=== PATIENT | male | born 1985 | race Caucasian/White ===

== ENCOUNTER 2020-10-30 12:38 | Observation (INO) | payer OTHER, SELFPAY ==
[2020-10-30 13:04] VITALS: BP 125/84; PULSE 82; RESP 19; TEMP 37.1; O2SAT 100
[2020-10-30 15:54] LABS: Alanine Aminotransferase 25 IU/L (<50); Albumin 4.7 g/dL (3.5-5.0); Albumin Globulin Ratio 1.5 (1.0-2.8); Alkaline Phosphatase 54 U/L (38-126); Aspartate Aminotransferase 35 IU/L (17-59); BUN Creatinine Ratio 10.6 (6-22); Bilirubin Total 1.2 mg/dL (0.2-1.3); Blood Urea Nitrogen 10 mg/dL (9-20); Calcium 9.5 mg/dL (8.4-10.2); Carbon Dioxide 29 mmol/L (22-32); Chloride 103 mmol/L (98-107); Estimated Glomerular Filt Rate > 60.0 mL/min (>60); Globulin 3.2 g/dL (1.7-4.1); Glucose 96 mg/dL (70-100); HEMOLYSIS < 15 (0-50); Lipase 26 U/L (23-300); Potassium 4.1 mmol/L (3.4-5.1); Sodium 139 mmol/L (137-145); Total Protein 7.9 g/dL (6.3-8.2)
[2020-10-30 15:59] LABS: Add Manual Diff / Slide Review NO; Basophils Absolute Auto 100 /uL (0-100); Basophils Percent Auto 0.7 % (0-2); Eosinophils Absolute Auto 200 /uL (0-450); Eosinophils Percent Auto 1.7 % (2-4); Hematocrit 44.6 % (41-53); Hemoglobin 15.1 g/dL (13.5-17.5); Lymphocytes Absolute Auto 1800 /uL (1100-4500); Mean Corpuscular HGB Conc 33.7 % (30-36); Mean Corpuscular Hemoglobin 28.6 PG (26-34); Mean Corpuscular Volume 84.6 fL (80-100); Monocytes Absolute Auto 800 /uL (0-900); Monocytes Percent Auto 7.9 % (3-14); Neutrophils Absolute Auto 7100 /uL (1500-7000); Neutrophils Percent Auto 71.7 % (50-75); Platelet Count 254 X10^3/uL (150-400); Red Blood Cell Count 5.27 X10^6/uL (4.5-5.9); Red Cell Distribution Width 12.9 % (11.6-14.8); White Blood Cell Count 9.9 X10^3/uL (4.5-11.0)
--- NOTE | 2020-10-30 18:00 | ED_ITS ---
HPI - Abdominal Pain General Chief Complaint: Abdominal Pain Stated Complaint: abdominal/appendix pain Time Seen by Provider: 10/30/20 17:59 Source: patient Mode of arrival: Ambulatory History of Present Illness HPI narrative: This is a 35-year-old male comes emergency department with right lower quadrant pain. Patient states been present for 2 days. He states it sort of lower and lateral. Patient has not had fevers. He has not had any nausea or vomiting. He has not had any diarrhea but states stools have been a little bit looser. No black or bloody stools. Patient has been urinating without issue. He states when it starts to get worse he has a bit of a headache. Patient denies any other medical issues. No prior surgeries. He states he has always had a small bump in his umbilicus region which is worsened when pressed or palpated even growing up as a child but is not acutely worse today. He has not noticed any lumps or bumps otherwise. Patient denies any allergies to medications. Related Data Previous Rx's Medication Instructions Recorded cefuroxime axetil 500 mg tablet 500 mg PO BID #7 tab 10/31/20 metronidazole 500 mg tablet 500 mg PO TID #10 tab 10/31/20 (Flagyl) oxycodone 5 mg tablet 5 mg PO Q6H PRN #10 tab 10/31/20 Allergies Allergy/AdvReac Type Severity Reaction Status Date / Time No Known Drug Allergies Allergy Verified 10/31/20 13:15 Review of Systems Review of Systems ROS Unobtainable: All systems reviewed & are unremarkable except as noted in HPI and below Patient History Social History household members: spouse and children Smoking Status: Former smoker alcohol intake: current Smoking Status: Former smoker tobacco type: smokeless tobacco alcohol intake frequency: a few times a week Substance Use Type: does not use Exam Narrative Exam Narrative: GENERAL: Alert and oriented x three, well-nourished male in mild distress. HEENT: Head normocephalic, atraumatic, EOMI, pupils reactive, face symmetric, moist mucous membranes NECK: Supple, full range of motion CARDIOVASCULAR: Regular rate and rhythm without murmurs, rubs or gallops. RESPIRATORY: Breath sounds equal bilaterally, no wheezes rales or rhonchi. ABDOMEN: Soft, mild right lower quadrant tenderness. Patient has a very small umbilical hernia which does not even protrude from the umbilicus. It is not really tender but does feel full it is not easily reducible. Patient does not have any inguinal hernias on palpation. Normoactive bowel sounds all 4 quadrants. No guarding or rebound, rigidity, no mass : No CVA tenderness bilaterally EXTREMITIES: Normal range of motion, no clubbing or edema. Neurovascularly intact NEUROLOGICAL: Cranial nerves II through XII grossly intact. Moving all extremities SKIN: Warm, dry, no petechiae, no rashes or lesions. Initial Vital Signs Initial Vital Signs: Vital Signs Temperature 98.8 F 10/30/20 13:04 Pulse Rate 82 10/30/20 13:04 Respiratory Rate 19 10/30/20 13:04 Blood Pressure 125/84 10/30/20 13:04 Pulse Oximetry 100 10/30/20 13:04 Course Orders Ordered: Discontinued Medications Bupivacaine HCl (Bupivacaine 0.5% (Pf) Vial) 30 ml INJ NOW ONE Stop: 10/31/20 16:14 Last Admin: 10/31/20 16:13 Dose: 30 ml Documented by: FARNAZ Enoxaparin Sodium (Enoxaparin 40 Mg/0.4 Ml Syringe) 40 mg SUBCUT NOW ONE Stop: 10/30/20 19:54 Last Admin: 10/30/20 21:12 Dose: 40 mg Documented by: CYNDI Hydromorphone HCl (Hydromorphone 1 Mg Inj) 1 mg IV Q4HR PRN PRN Reason: Pain, Severe (7-10) Last Admin: 10/31/20 09:32 Dose: 1 mg Documented by: Admin: 10/30/20 21:12 Dose: 1 mg Documented by: CYDNI Hydromorphone HCl (Hydromorphone 2 Mg Inj) 0 mg IV Q5MIN PRN PRN Reason: Pain, Mild (1-3) Piperacillin Sod/Tazobactam (Sod 4.5 gm/ Sodium Chloride) 100 mls @ 200 mls/hr IV NOW ONE Stop: 10/30/20 18:25 Last Infusion: 10/30/20 19:27 Dose: 0 mls/hr Documented by: Admin: 10/30/20 18:47 Dose: 200 mls/hr Documented by: DARÍO Lactated Ringer's (Lactated Ringers) 1,000 mls @ 150 mls/hr IV CONT BLANKA Last Admin: 10/31/20 14:50 Dose: 150 mls/hr Documented by: Infusion: 10/31/20 14:50 Dose: 150 mls/hr Documented by: Admin: 10/31/20 13:02 Dose: 150 mls/hr Documented by: Infusion: 10/31/20 08:44 Dose: 150 mls/hr Documented by: Admin: 10/31/20 02:03 Dose: 150 mls/hr Documented by: Infusion: 10/31/20 02:03 Dose: 150 mls/hr Documented by: Admin: 10/30/20 21:09 Dose: 150 mls/hr Documented by: CYNDI Piperacillin Sod/Tazobactam (Sod 3.375 gm/ Sodium Chloride) 100 mls @ 25 mls/hr IV Q8H [facility] Last Admin: 10/31/20 16:08 Dose: 25 mls/hr Documented by: Infusion: 10/31/20 14:03 Dose: 25 mls/hr Documented by: Admin: 10/31/20 10:03 Dose: 25 mls/hr Documented by: JEAN CARLOS Infusion: 10/31/20 07:50 Dose: 0 mls/hr Documented by: Admin: 10/31/20 02:01 Dose: 25 mls/hr Documented by: VELMA Acetaminophen (Ofirmev) 1,000 mg in 100 mls @ 400 mls/hr IV NOW ONE Stop: 10/31/20 16:21 Last Infusion: 10/31/20 16:46 Dose: 0 mls/hr Documented by: Admin: 10/31/20 16:30 Dose: 400 mls/hr Documented by: YVONNE Ketorolac Tromethamine (Ketorolac 30 Mg/Ml Vial) 30 mg IV NOW ONE Stop: 10/30/20 18:06 Last Admin: 10/30/20 18:46 Dose: 30 mg Documented by: DARÍO Ketorolac Tromethamine (Ketorolac 30 Mg/Ml Vial) 30 mg IV Q6HR PRN PRN Reason: Pain, Moderate (4-6) Stop: 11/04/20 19:41 Last Admin: 10/31/20 07:53 Dose: 30 mg Documented by: Admin: 10/31/20 02:00 Dose: 30 mg Documented by: VELMA Meperidine HCl (Meperidine 50 Mg/Ml Inj) 12.5 mg IV PACUNOW PRN PRN Reason: Mild pain or shivering Naloxone HCl (Naloxone 0.4 Mg/Ml Vial) 0.2 mg IV Q2MIN PRN PRN Reason: Opiate Reversal Ondansetron HCl (Ondansetron 4 Mg/2 Ml Inj) 4 mg IV Q4HR PRN PRN Reason: Nausea And Vomiting Ondansetron HCl (Ondansetron 4 Mg/2 Ml Inj) 4 mg IV NOW PRN PRN Reason: Nausea And Vomiting Oxycodone HCl (Oxycodone Ir 5 Mg Tablet) 5 mg PO PACUNOW PRN PRN Reason: Mild or moderate pain Last Admin: 10/31/20 17:27 Dose: 5 mg Documented by: BROWN Consultations Consultation #1: Dr. March. Plan for NPO, antibiotics and OR in morning. Vital Signs Vital signs: Vital Signs - 8 hr 10/30/20 13:04 Temperature 98.8 F Pulse Rate 82 Respiratory Rate 19 Blood Pressure 125/84 Pulse Oximetry 100 MDM - Abdominal Pain Lab Data Result diagrams: 10/31/20 05:32 10/30/20 15:30 Labs: Lab Results 10/30/20 10/30/20 Range/Units 15:30 15:30 WBC 9.9 (4.5-11.0) X10^3/uL RBC 5.27 (4.5-5.9) X10^6/uL Hgb 15.1 (13.5-17.5) g/dL Hct 44.6 (41-53) % MCV 84.6 (80-100) fL MCH 28.6 (26-34) PG MCHC 33.7 (30-36) % RDW 12.9 (11.6-14.8) % Plt Count 254 (150-400) X10^3/uL Neut % (Auto) 71.7 (50-75) % Lymph % (Auto) 18.0 L (25-40) % [place] % (Auto) 7.9 (3-14) % Eos % (Auto) 1.7 L (2-4) % Baso % (Auto) 0.7 (0-2) % Neut # (Auto) 7100 H (3564-0371) /uL Lymph # (Auto) 1800 (3532-3012) /uL Al[place] # (Auto) 800 (0-900) /uL Eos # (Auto) 200 (0-450) /uL Baso # (Auto) 100 (0-100) /uL Sodium 139 (137-145) mmol/L Potassium 4.1 (3.4-5.1) mmol/L Chloride 103 (98-107) mmol/L Carbon Dioxide 29 (22-32) mmol/L BUN 10 (9-20) mg/dL Creatinine 0.94 (0.66-1.25) mg/dL Estimated GFR > 60.0 (>60) mL/min BUN/Creatinine Ratio 10.6 (6-22) Glucose 96 (70-100) mg/dL Calcium 9.5 (8.4-10.2) mg/dL Total Bilirubin 1.2 (0.2-1.3) mg/dL AST 35 (17-59) IU/L ALT 25 (<50) IU/L Alkaline Phosphatase 54 (38-126) U/L Total Protein 7.9 (6.3-8.2) g/dL Albumin 4.7 (3.5-5.0) g/dL Globulin 3.2 (1.7-4.1) g/dL Albumin/Globulin Ratio 1.5 (1.0-2.8) Lipase 26 (23-300) U/L Point of care testing: Urine Dip Bedside Urine Glucose Negative Bedside Urine Bilirubin - Negative Bedside Urine Ketone - Negative Urine Specific [place] 1.015 Bedside Urine Occult Blood - Negative Bedside Urine pH 6.0 Bedside Urine Protein - Negative Bedside Urine Urobilinogen - Negative Bedside Urine Nitrite - Negative Bedside Urine Leukocytes - Negative Esterase Imaging Data CT scan - abdomen/pelvis: Radiologist's Impression: Tristan Darden 35 M 1985 [address] [id number] Scan ReportSigned Patient: Tristan Darden WMR#: [id number]: 1985Acct:[id number]/Sex: 35 / MDate of Service: 10/30/20Loc: EDAccession Number: [id number] Procedure: CT abdomen pelvis w con Ordering Provider: Rica Hansen D.O. PROCEDURE: CT ABDOMEN PELVIS W CON INDICATIONS: RLQ pain, + sm umbilical hernia, no other hernia noted. TECHNIQUE: After the administration of intravenous contrast, axial sections acquired from the lung bases to the pubic symphysis. Coronal and sagittal reformats were performed. For radiation dose reduction, the following was used: automated exposure control, adjustment of mA and/or kV according to patient size. COMPARISON: None. FINDINGS: Image quality: Excellent. Lung bases: Unremarkable. Heart: No significant findings. ABDOMEN: Liver: Unremarkable. Gallbladder: Unremarkable. Biliary ducts: Unremarkable. Pancreas: Unremarkable. Spleen: Unremarkable. Adrenal Glands: Unremarkable. Kidneys and Ureters: Unremarkable. Stomach and Bowel: Stomach, small bowel loops, and colon are unremarkable. Peritoneum: No abnormal intraperitoneal fluid. No free air. Ventral Wall: No hernias. Abdominal Nodes: No retroperitoneal or mesenteric adenopathy by size criteria. Vessels: Aorta and inferior vena cava are normal in size. PELVIS: Pelvic Organs: Unremarkable except for acute appendicitis right lower quadrant without evidence of para appendiceal abscess formation. No appendicoliths are seen. The appendix is dilated up to 11 mm. . Bladder: Unremarkable. Pelvic Nodes: No enlarged lymph nodes. Miscellaneous: No hernias are seen. Bones: Unremarkable. IMPRESSION: Acute appendicitis without evidence of periappendiceal abscess form ation. Findings immediately called to the emergency room physician caring for the patient. Dictated by: Oliverio Montez M.D. on 10/30/2020 at 18:26 Approved by: Oliverio Montez M.D. on 10/30/2020 at 18:29 [facility] Narrative Medical decision making narrative: This is a 35 old male who comes to the emergency department with complaint of left lower quadrant pain. He has appendicitis on the CT. Taken to OR by surgery Discharge Plan Departure Patient Disposition: Admitted as Observation Clinical Impression: Acute appendicitis Admit Date/Time: 10/30/20 18:49 Admit Provider: Papito March
--- NOTE | 2020-10-30 18:05 | DI.CT.S_ITS ---
PROCEDURE: CT ABDOMEN PELVIS W CON INDICATIONS: RLQ pain, + sm umbilical hernia, no other hernia noted. TECHNIQUE: After the administration of intravenous contrast, axial sections acquired from the lung bases to the pubic symphysis. Coronal and sagittal reformats were performed. For radiation dose reduction, the following was used: automated exposure control, adjustment of mA and/or kV according to patient size. COMPARISON: None. FINDINGS: Image quality: Excellent. Lung bases: Unremarkable. Heart: No significant findings. ABDOMEN: Liver: Unremarkable. Gallbladder: Unremarkable. Biliary ducts: Unremarkable. Pancreas: Unremarkable. Spleen: Unremarkable. Adrenal Glands: Unremarkable. Kidneys and Ureters: Unremarkable. Stomach and Bowel: Stomach, small bowel loops, and colon are unremarkable. Peritoneum: No abnormal intraperitoneal fluid. No free air. Ventral Wall: No hernias. Abdominal Nodes: No retroperitoneal or mesenteric adenopathy by size criteria. Vessels: Aorta and inferior vena cava are normal in size. PELVIS: Pelvic Organs: Unremarkable except for acute appendicitis right lower quadrant without evidence of para appendiceal abscess formation. No appendicoliths are seen. The appendix is dilated up to 11 mm. . Bladder: Unremarkable. Pelvic Nodes: No enlarged lymph nodes. Miscellaneous: No hernias are seen. Bones: Unremarkable. IMPRESSION: Acute appendicitis without evidence of periappendiceal abscess formation. Findings immediately called to the emergency room physician caring for the patient. Dictated by: Oliverio Montez M.D. on 10/30/2020 at 18:26 Approved by: Oliverio oMntez M.D. on 10/30/2020 at 18:29
[2020-10-30] MEDS: KETOROLAC 30 MG/ML VIAL IV (18:46)
[2020-10-30] MEDS: PIPERACILLIN/TAZO 4.5 GM in SODIUM CHLORIDE 0.9% 100 ML 200 ML IV (18:47)
--- NOTE | 2020-10-30 19:45 | PM.HP.1 ---
History of Present Illness History of Present Illness Chief complaint: abdominal/appendix pain Narrative: Patient is a gentleman with a 2 day history of right lower abdominal pain accompanied by anorexia with no nausea or vomiting. He has had a headache all day but he thinks that is because he has not eaten. Unfortunately had water just before I saw him. He has never had pain like this before. No prior abdominal operations. He is otherwise healthy. No black or bloody bowel movements. No dysuria or hematuria. Patient History Family & Social History Safety & Behavioral: Feels Safe in Current Yes Environment Been Physically Hurt or No Threatened By a Person Tobacco & Substance use: Smoking Status Former smoker alcohol intake frequency a few times a week Substance Use Type does not use Meds Home Medications and Allergies Home Medications Medication Instructions Recorded Confirmed Type No Known Home Medications 06/17/18 10/30/20 History Allergies Allergy/AdvReac Type Severity Reaction Status Date / Time No Known Drug Allergies Allergy Verified 06/17/18 19:55 Review of Systems Review of Systems Narrative: Patient denies visual difficulties double vision, pain in eyes, earache, sore throats, trouble swallowing, cough, cold or asthma. No chest pain or heart problems or murmurs. No breathing issues. No black or bloody bowel movements. No dysuria, hematuria or kidney stones. No seizures or blackouts. No anxiety or depression. 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 Exam Vital Signs (past 8 hours): - 10/30/20 13:04 Temperature 98.8 F Pulse Rate 82 Respiratory Rate 19 Blood Pressure 125/84 Pulse Oximetry 100 Oxygen Delivery Method Room Air Narrative Exam Narrative: Cooperative in no apparent distress. Eyes are nonicteric. Pupils equal round reactive to light. Neck is supple no nodes in the neck supraclavicular areas. Oral mucosa is pink moist no open lesions. Lungs are clear to auscultation without rales or rhonchi in equal percussion. Heart regular rate and rhythm without murmur gallop. No heave lift or thrill. Abdomen is slightly protuberant soft. Localized tenderness in the right abdomen just below the umbilicus level. Remainder the abdomen is soft nontender. No CVA tenderness. Alert and oriented. Speech rate and content are appropriate. Affect is appropriate. No bony deformities or edema of there is extremities. Skin is intact 2+ turgor and texture. Objective Labs Result Diagrams: 10/30/20 15:30 10/30/20 15:30 Labs: Laboratory Results - last 24 hr 10/30/20 10/30/20 15:30 15:30 WBC 9.9 RBC 5.27 Hgb 15.1 Hct 44.6 MCV 84.6 MCH 28.6 MCHC 33.7 RDW 12.9 Plt Count 254 Neut % (Auto) 71.7 Lymph % (Auto) 18.0 L Angelina % (Auto) 7.9 Eos % (Auto) 1.7 L Baso % (Auto) 0.7 Neut # (Auto) 7100 H Lymph # (Auto) 1800 Angelina # (Auto) 800 Eos # (Auto) 200 Baso # (Auto) 100 Sodium 139 Potassium 4.1 Chloride 103 Carbon Dioxide 29 BUN 10 Creatinine 0.94 Estimated GFR > 60.0 BUN/Creatinine Ratio 10.6 Glucose 96 Calcium 9.5 Total Bilirubin 1.2 AST 35 ALT 25 Alkaline Phosphatase 54 Total Protein 7.9 Albumin 4.7 Globulin 3.2 Albumin/Globulin Ratio 1.5 Lipase 26 Assessment & Plan Assessment and plan (1) Acute appendicitis: Qualifiers: Acute appendicitis type: with localized peritonitis Appendicitis gangrene presence: unspecified whether gangrene present Appendicitis perforation presence: unspecified whether perforation present Appendicitis abscess presence: without abscess Qualified Code(s): K35.30 - Acute appendicitis with localized peritonitis, without perforation or gangrene Status: Acute Assessment & Plan narrative: Recommend laparoscopic appendectomy. Unfortunately the patient has chest drank water. To reduce his risk of aspiration we will hydrate him well through the night and operate tomorrow morning. We will begin broad-spectrum IV antibiotics. He has already received 2 doses Zosyn so I will continue that on the floor. He can be up and about will give him DVT prophylaxis tonight. All questions were answered. Talked to him about the incisions what I would find most likely risk of open procedure additional port sites. Risks of bleeding and abscess formation were also discussed. He appears to understand wishes to proceed
[2020-10-30 19:49] VITALS: BP 140/80; PULSE 70; RESP 18; O2SAT 100
[2020-10-30 19:51] LABS: COVID19 - ADMIT (NP swab/PCR) Negative (Negative)
[2020-10-30 19:55] VITALS: BP 117/73; PULSE 71; RESP 16; TEMP 36.4; O2SAT 99; BMI 25.9
[2020-10-30] MEDS: LACTATED RINGERS 1,000 ML 150 ML IV (21:09)
[2020-10-30] MEDS: ENOXAPARIN 40 MG/0.4 ML SYRINGE SUBCUT (21:12)
[2020-10-30] MEDS: HYDROMORPHONE 1 MG INJ IV (21:12)
[2020-10-31] VITALS (14 sets, daily range): BP systolic 98–138; BP diastolic 55–78; PULSE 55–66; RESP 11–18; TEMP 35.9–36.7; O2SAT 96–100; BMI 25.9
--- NOTE | 2020-10-31 | PATH_ITS ---
[facility] Accession Number: [id number] . 01 Material submitted: . appendix - APPENDIX . 02 Diagnosis: Appendix, Appendectomy: Acute appendicitis and serositis. Fibrous obliteration of the appendiceal tip. MRV 11/05/2020 1358 Local . 02 Electronically signed: . Emma Kinney MD, Pathologist NPI- [id number] . 01 Gross description: . Received in formalin and labeled with appendix. It consists of a 3.8 cm in length by 0.6 cm in diameter intact appendix covered in pink-burch to purple-burch, focally congested serosa. The 4.2 x 1.3 x 1.2 cm attached mesoappendix is yellow-burch, coarsely lobulated and diffusely hemorrhagic. The resection margin is inked blacked and shaved. Sectioning reveals pink-burch, focally hemorrhagic mucosa, a lumen that dilates to 0.2 cm, and an average wall thickness of 0.2 cm. A nodular lesion is not grossly apparent. Obstetrics Gyn sections are submitted. . Summary of Sections: A1 = Resection margin and bisected tip, 3 pieces. 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 ([id number]) /MRV 11/01/2020 1544 Local . 02 Pathologist provided ICD-10: K35.30 . 02 CPT . 699627 Performed at: 01 [facility] [address], [place], [place] [id number] MD Attila Villanueva MD Phone: [phone] Performed at: [address] [facility] [address] [place], [place] [id number] MD Aylin Oneill MD Phone: [phone]
[2020-10-31] MEDS: KETOROLAC 30 MG/ML VIAL IV ×2 (02:00→07:53)
[2020-10-31] MEDS: PIPERACILLIN/TAZO 3.375 GM in SODIUM CHLORIDE 0.9% 100 ML 25 ML IV ×3 (02:01→16:08)
[2020-10-31] MEDS: LACTATED RINGERS 1,000 ML 150 ML IV ×3 (02:03→14:50)
[2020-10-31 05:56] LABS: Add Manual Diff / Slide Review NO; Basophils Absolute Auto 0 /uL (0-100); Basophils Percent Auto 0.6 % (0-2); Eosinophils Absolute Auto 200 /uL (0-450); Eosinophils Percent Auto 3.3 % (2-4); Hematocrit 38.6 % (41-53); Hemoglobin 13.2 g/dL (13.5-17.5); Lymphocytes Absolute Auto 2400 /uL (1100-4500); Lymphocytes Percent Auto 37.5 % (25-40); Mean Corpuscular HGB Conc 34.1 % (30-36); Mean Corpuscular Hemoglobin 28.7 PG (26-34); Monocytes Absolute Auto 800 /uL (0-900); Neutrophils Absolute Auto 3000 /uL (1500-7000); Neutrophils Percent Auto 46.6 % (50-75); Platelet Count 226 X10^3/uL (150-400); Red Cell Distribution Width 12.8 % (11.6-14.8); White Blood Cell Count 6.4 X10^3/uL (4.5-11.0)
[2020-10-31] MEDS: HYDROMORPHONE 1 MG INJ IV (09:32)
--- NOTE | 2020-10-31 10:16 | PM.PREOP ---
Pre-operative Note COVID-19 COVID-19 status: Negative Result date/Date tested (Pos, Neg/Pending): 10/30/20 Interval Note History & Physical reviewed/Exam performed by Physician: Yes Changes to H&P: No
--- NOTE | 2020-10-31 10:53 | CM.IDA ---
Initial DCP Assessment Note Pt is a 35 yo male, resident of [place], arrives w/ abd pain, Dr March admitted observation for lap appy, scheduled today 10.31.20 at 1230 PCP: Not listed Payer: Sangeetha According to chart review, patient is indp. and ambulating in room, NPO and awaiting scheduled surgery today. Patient expected to return home w/spouse s/p lap appy No needs expected from DC planning team although will remain available in case this changes before DC. JW
--- NOTE | 2020-10-31 14:32 | PC.NURSE ---
Pt to OR via bed with CPAP and IVF and SUPERVISOR RIVETING's.
--- NOTE | 2020-10-31 15:53 | SUR.OPER ---
Supine on padded OR bed, head on pillow, left arm padded and tucked at side, right arm on padded armboard at < 90 degree angle, legs uncrossed, safety belt at thigh, tape over blanket over lower legs .
[2020-10-31] MEDS: BUPIVACAINE 0.5% (PF) VIAL 30 ML INJ (16:13)
[2020-10-31] MEDS: ACETAMINOPHEN IV 1,000 MG/100 ML VIAL 400 MG IV (16:30)
--- NOTE | 2020-10-31 17:24 | PM.OP.1 ---
Operative Date/Time/Diagnoses Date of procedure: 10/31/20 Time of procedure: 17:24 Pre-op diagnosis: Acute appendicitis Post-op diagnosis: same Procedure & Clinicians Procedure: laparoscopic appendectomy Same procedure as scheduled: Yes Indications: history physical exam and CT consistent with acute appendicitis. Surgeon: Papito March Click Yes if Unassisted: Yes Anesthesia Type: General Operative Notes Findings: acute appendicitis Closure Type: primary Specimen(s): other ( appendix) Prosthetic devices, grafts, tissues, transplants, or devices: none Estimated Blood Loss (mL): 5 Blood products transfused: none Procedure in detail: The patient was placed supine on the operating room table and underwent general endotracheal anesthesia. The patient was prepped and draped in the usual fashion. Local anesthetic was infiltrated and an incision made Adjacent to the umbilicus. It was carried down under direct vision through the fascia into the peritoneal cavity. there was a hernia at the umbilicus and the fat that was incarcerated in it was removed. The defect was enlarged in order to place the port. Stay sutures of 0 Vicryl were placed in the fascia. A 12 mm port was inserted and 2 additional ports were placed. These were 5 mm ports. One was placed between the umbilicus and pubis and 1 in the left lower quadrant. The cecum and terminal ileum were identified. Mesoappendix was cleaned and the base the appendix identified. A loop was placed across it and the appendix was divided Beyond this loop.. There was no bleeding. The appendix was immediately placed in a bag. The mucosa of the base of the appendix was cauterized. The right gutter and pelvis were copiously irrigated and suctioned free of fluid. There was no ongoing bleeding.The ports were all removed. The stay sutures at the umbilicus were tied. An additional 0 Ethibond was placed between the other sutures. The wounds were all irrigated and 4 0 Vicryl subcuticular interrupted sutures were used to close the skin. the umbilicus was tacked down with the same material prior to closure the skin at that location. The patient tolerated the procedure well. Complications: none Post-operative Condition: stable Disposition: PACU
[2020-10-31] MEDS: OXYCODONE IR 5 MG TABLET PO (17:27)
--- NOTE | 2020-10-31 17:47 | PC.NURSE ---
Patient returned to floor 1745.
--- NOTE | 2020-10-31 20:27 | PC.NURSE ---
Discharge note: Patient ambulated out of hospital under own power accompanied by and PIN WORKER to private vehicle. IV removed, belongings gathered, discharge instructions given including when to follow up, s/sx of stroke, infection, wound care, and medications. Patient and acknowledged all teaching. Low fall risk at time of discharge.
--- NOTE | 2020-10-31 21:36 | PM.DS.1 ---
History of Present Illness History of Present Illness Date Patient Seen: 10/31/20 Time Patient Seen: 18:00 Chief complaint: abdominal/appendix pain Narrative: Patient is a gentleman with a 2 day history of right lower abdominal pain accompanied by anorexia with no nausea or vomiting. He has had a headache all day but he thinks that is because he has not eaten. Unfortunately had water just before I saw him. He has never had pain like this before. No prior abdominal operations. He is otherwise healthy. No black or bloody bowel movements. No dysuria or hematuria. Discharge Providers Provider Date of admission: 10/30/20 18:49 Discharge Date: 10/31/20 Consults: 10/30/20 19:53 Consult to Discharge Planning Routine Comment: 10/30/20 20:07 Consult to Pastoral Services Routine Comment: Per patient request Discharge provider: Papito March MD Summary Hospital Course Discharge Diagnosis: Acute appendicitis Hospital Course: patient was brought into the hospital. Because he had taken p.o. he was not operated on the night of admission but was placed on the OR schedule for the next day. He underwent laparoscopic appendectomy. He was found to have a non perforated appendix. Postopratively he desired to go home and thus was discharged on a diet to follow up in the office. He was discharged on 3 days of oral antibiotics and pain medication. Status at Discharge Cognitive/behavioral status at discharge: oriented Functional status at discharge: independent ambulation Overall status at discharge: patient is progressing back to baseline Exam Vital Signs (past 8 hours): - 10/31/20 14:44 10/31/20 17:12 10/31/20 17:17 Temperature 96.7 F L 96.8 F L Pulse Rate 55 L 60 65 Respiratory Rate 18 11 L 12 Blood Pressure 103/69 111/63 106/73 Pulse Oximetry 99 99 98 10/31/20 17:21 10/31/20 17:26 10/31/20 17:31 Temperature 98 F Pulse Rate 62 61 58 L Respiratory Rate 13 14 11 L Blood Pressure 107/56 L 111/78 107/77 Pulse Oximetry 99 97 96 10/31/20 17:35 10/31/20 17:45 10/31/20 18:15 Temperature 96.9 F L 97.3 F L Pulse Rate 60 62 55 L Respiratory Rate 11 L 16 16 Blood Pressure 110/76 138/72 105/70 Pulse Oximetry 96 100 99 10/31/20 18:45 Temperature 97.9 F Pulse Rate 57 L Respiratory Rate 16 Blood Pressure 104/75 Pulse Oximetry 97 Oxygen Delivery Method Room Air Oxygen Flow Rate 0 Objective Labs Result Diagrams: 10/31/20 05:32 10/30/20 15:30 Labs: Laboratory Results - last 24 hr 10/31/20 05:32 WBC 6.4 RBC 4.60 Hgb 13.2 L Hct 38.6 L MCV 84.0 MCH 28.7 MCHC 34.1 RDW 12.8 Plt Count 226 Neut % (Auto) 46.6 L D Lymph % (Auto) 37.5 [place] % (Auto) 12.0 Eos % (Auto) 3.3 Baso % (Auto) 0.6 Neut # (Auto) 3000 Lymph # (Auto) 2400 [place] # (Auto) 800 Eos # (Auto) 200 Baso # (Auto) 0 PFSH Social History household members: spouse and children Smoking Status: Former smoker alcohol intake: current Discharge Plan Discharge Plan Patient Disposition: Home Provider Discharge Comment: you had acute appendicitis. Your appendix did not appear to be perforated. The medication you have been taking and will take at home will cause you to vomit if you taken any alcohol at all. This includes alcohol and cough syrup/ medicines as well as spirits , Wine and beer. take the antibiotics I prescribed to they run out. The pain medication I prescribed may constipate you. If so take a laxative like milk of magnesia. Discharge orders & Medications Prescriptions: New cefuroxime axetil 500 mg tablet 500 mg PO BID Qty: 7 RF: 0 metronidazole [Flagyl] 500 mg tablet 500 mg PO TID Qty: 10 RF: 0 oxycodone 5 mg tablet 5 mg PO Q6H PRN (Reason: pain) Qty: 10 RF: 0 Follow up/Referrals: Papito March MD [Physician] - 1 Week ( Call my office and make an appointment to see me Next Wednesday. If you need to reach a Ddoctor please call our office. If it is after hours listen to the message and you will be instructed how to reach the doctor on-call for our practice. Have a pen and paper ready to write the telephone number down) Diet/Activity/Treatments Diet: Diet as Tolerated Activity: No pool or tub for least [address] your pain-free off medication. Do not lift over 10 lb or strain for the next 4 weeks. You may walk but no other form of exercise. Skin/Wound/Dressing Care Report to your healthcare provider any signs of infection, such as:: chills, fever, increased pain, unusual drainage and unusual redness Dressing: you may remove your Band-Aids in 2 days and shower. Leave the tape that is directly on her skin under the Band-Aids fall off on its own. Discharge Data Attending Provider: Papito March [facility] Deep Vein Thrombosis/Pulmonary Embolism Present on Admission: No
== END 2020-10-31 20:28 | disposition home or self-care (01) ==
LOC: ED 17:59 → AC 18:50
PROVIDERS: Admitting Provider Specialist; Emergency Provider Emergency Medicine; Referring Provider Emergency Medicine; Visit Provider Specialist
PROC: 0DTJ4ZZ Resection of Appendix, Percutaneous Endoscopic Approach (ICD-10-PCS; CPT 44970; principal; 2020-10-31 14:30)
DX: K35.30 Acute appendicitis with localized peritonitis, without perforation or gangrene (principal); G47.33 Obstructive sleep apnea (adult) (pediatric); Z20.822 Contact with and (suspected) exposure to COVID-19
CPT/HCPCS: 44970; 36415; 74177; 80053; 81003; 83690; 85025; 87635; 96361; 96365; 96366; 96372; 96375; 96376; 99220; 99284; C9803; G0378; J0131; J0330; J1100; J1170; J1650; J1885; J2250; J2405; J2543; J2704; J3010; Q9967

== ENCOUNTER → 2022-01-23 09:22 | Outpatient (CLI) | payer OTHER, SELFPAY ==
[2022-01-23 10:38] LABS: Add Manual Diff / Slide Review NO; Basophils Absolute Auto 0 /uL (0-100); Basophils Percent Auto 0.6 % (0-2); Eosinophils Absolute Auto 200 /uL (0-450); Hematocrit 44.2 % (41-53); Hemoglobin 15.4 g/dL (13.5-17.5); Lymphocytes Absolute Auto 2400 /uL (1100-4500); Lymphocytes Percent Auto 42.9 % (25-40); Mean Corpuscular HGB Conc 34.9 % (30-36); Mean Corpuscular Hemoglobin 29.2 PG (26-34); Mean Corpuscular Volume 83.7 fL (80-100); Monocytes Absolute Auto 600 /uL (0-900); Monocytes Percent Auto 10.2 % (3-14); Neutrophils Absolute Auto 2400 /uL (1500-7000); Neutrophils Percent Auto 43.3 % (50-75); Platelet Count 238 X10^3/uL (150-400); Red Blood Cell Count 5.28 X10^6/uL (4.5-5.9); Red Cell Distribution Width 12.3 % (11.6-14.8); White Blood Cell Count 5.6 X10^3/uL (4.5-11.0)
[2022-01-23 11:09] LABS: Alanine Aminotransferase 28 IU/L (<50); Albumin 4.6 g/dL (3.5-5.0); Albumin Globulin Ratio 1.7 (1.0-2.8); Alkaline Phosphatase 49 U/L (38-126); Aspartate Aminotransferase 36 IU/L (17-59); BUN Creatinine Ratio 13.3 (6-22); Bilirubin Total 0.7 mg/dL (0.2-1.3); Blood Urea Nitrogen 14 mg/dL (9-20); Calcium 9.6 mg/dL (8.4-10.2); Carbon Dioxide 25 mmol/L (22-32); Chloride 99 mmol/L (98-107); Cholesterol 219 mg/dL (140-199); Estimated Glomerular Filt Rate > 60 mL/min (>60); Globulin 2.7 g/dL (1.7-4.1); Glucose 99 mg/dL (70-100); HDL Cholesterol 45 mg/dL (40-60); HEMOLYSIS < 15 (0-50); LDL Cholesterol Calculated 139 mg/dL (<100); Potassium 4.6 mmol/L (3.4-5.1); Sodium 136 mmol/L (137-145); Total Protein 7.3 g/dL (6.3-8.2); Triglycerides 177 mg/dL (35-150)
[2022-01-23 11:39] LABS: Prostate Specific Antigen Scrn 1.19 ng/mL (0.1-4.0)
== END ==
PROVIDERS: PCP Family Medicine; Referring Provider Family Medicine; Visit Provider Family Medicine
DX: R35.1 Nocturia (principal); Z12.5 Encounter for screening for malignant neoplasm of prostate; Z76.89 Persons encountering health services in other specified circumstances; Z80.42 Family history of malignant neoplasm of prostate
CPT/HCPCS: 36415; 80053; 80061; 85025; G0103